=== PATIENT | female | born 1995 | race American Indian/Alaskan Native ===

== ENCOUNTER 2017-12-13 22:47 | Emergency (ER) | payer MEDICAID ==
[~2017-12-13] VITALS: Ht 165.1 cm; Wt 87.8 kg
[~2017-12-13 22:47] MED LIST: IBUP-1984 PO; NO HOME MEDS
[2017-12-13 22:50] VITALS: BP 110/64
== END 2017-12-13 23:49 | disposition home or self-care (01) ==
LOC: ER 22:48
DX: R09.1 Pleurisy (principal); R07.81 Pleurodynia; Z88.5 Allergy status to narcotic agent
CPT/HCPCS: 99281